=== PATIENT | male | born 1940 | race Caucasian/White ===

== ENCOUNTER 2016-06-18 11:28 | Observation (INO) | payer BC, OTHER ==
[~2016-06-18] VITALS: Ht 170.2 cm; Wt 68.5 kg
[2016-06-18 11:41] VITALS: Ht 170.2 cm; Wt 68.5 kg
[2016-06-18] MEDS ORDERED: SODIUM CHLORIDE 0.9% 1L BAG IV* STA (12:14)
[2016-06-18 12:36] LABS: ADD SCAN DIFF NO
[2016-06-18 12:39] LABS: BASOPHIL # 0.1 10^3/ul (0.0-0.1); BASOPHILS % 0.4 % (0.0-2.0); EOSINOPHILS % 0.2 % (0.0-7.0); HEMATOCRIT 34.8 % (42.0-52.0); HEMOGLOBIN 11.6 g/dl (14.0-18.0); LYMPHOCYTES % 7.3 % (15.0-51.0); MEAN CORPUSCULAR HEMOGLOBIN 28.4 pg (29.0-33.0); MEAN CORPUSCULAR HGB CONC 33.3 g/dl (32.0-37.0); MEAN CORPUSCULAR VOLUME 85.3 fl (82.0-101.0); MONOCYTE # 0.7 10^3/ul (0.3-0.9); MONOCYTES % 4.9 % (0.0-11.0); NEUTROPHIL # 12.1 10^3/ul (1.6-7.5); NEUTROPHILS % 86.7 % (39.0-77.0); PLATELET COUNT 366 10^3/UL (140-415); RED BLOOD COUNT 4.08 10^6/ul (4.70-6.10); RED CELL DISTRIBUTION WIDTH 13.2 % (11.5-14.5)
[2016-06-18 12:51] LABS: ALBUMIN 3.6 g/dl (3.3-4.9); CHLORIDE 97 mmol/L (97-110)
[2016-06-18 12:52] LABS: POTASSIUM 3.6 mmol/L (3.5-5.1); SODIUM 138 mmol/L (135-144)
[2016-06-18 12:54] LABS: ANION GAP 14 (8-16); BILIRUBIN,INDIRECT 0.3 mg/dl (0-1.1); BILIRUBIN,TOTAL 0.3 mg/dl (0.2-1.3); CARBON DIOXIDE 31 mmol/L (21-31)
[2016-06-18 12:55] LABS: ALANINE AMINOTRANSFERASE 34 IU/L (13-69); ALBUMIN/GLOBULIN RATIO 1.05; ALKALINE PHOSPHATASE 101 IU/L (42-121); ASPARTATE AMINO TRANSFERASE 34 IU/L (15-46); BLOOD UREA NITROGEN 17 mg/dl (7-20); CALCIUM 9.2 mg/dl (8.4-10.2); GLUCOSE 102 mg/dl (70-220)
[2016-06-18 12:56] LABS: INR 1.09; PROTIME 14.1 Sec (12.2-14.2); PT RATIO 1.1
[2016-06-18 12:57] LABS: PARTIAL THROMBOPLASTIN TIME 34.4 Sec (25.0-35.0)
[2016-06-18] MEDS ORDERED: HYD25 PO (13:02)
[2016-06-18] MEDS ORDERED: BENA40TA41 PO (13:02)
[2016-06-18] MEDS ORDERED: TAMS0.4C2 PO (13:02)
[2016-06-18] MEDS ORDERED: BRIM10DR12 BOTH EYES (13:03)
[2016-06-18] MEDS ORDERED: AMLO-147 PO (13:03)
[2016-06-18 13:08] LABS: TROPONIN-I < 0.012 ng/ml (0.00-0.12)
[2016-06-18 13:41] LABS: ADD UMIC NO; URINE BILIRUBIN (Dip) NEGATIVE (NEGATIVE); URINE BLOOD (Dip) NEGATIVE (NEGATIVE); URINE COLOR LT. YELLOW (YELLOW); URINE GLUCOSE (Dip) NEGATIVE (NEGATIVE); URINE KETONES (Dip) NEGATIVE (NEGATIVE); URINE LEUKOCYTE ESTERASE (Dip) NEGATIVE (NEGATIVE); URINE NITRITE (Dip) NEGATIVE (NEGATIVE); URINE TOTAL PROTEIN (Dip) NEGATIVE (NEGATIVE); URINE UROBILINOGEN (Dip) 0.2 E.U./dL (0.1-1.0)
[2016-06-18] MEDS ORDERED: ACETAMINOPHEN 325 MG TAB PO ONE (14:00)
[2016-06-18 14:05] VITALS: PULSE 70
--- NOTE | 2016-06-18 14:16 | RADRPT ---
PROCEDURE: XR Chest. CLINICAL INDICATION: Cough. Sepsis. TECHNIQUE: Single frontal view. COMPARISON: None. FINDINGS: There is mild air space disease in the lingula consistent with pneumonia. The lungs are otherwise c lear. The heart size is normal. There is calcification in the aorta consistent with atherosclerosis. There is no pleural effusion. There is no pneumothorax. IMPRESSION: 1. Mild lingular pneumonia. 2. Atherosclerosis. 3. Otherwise normal chest radiograph. RPTAT: QQ .Per Pike MD, MD Date Time Electronically viewed and signed by .Per Pike MD, MD on 06/18/2016 14:16 .R/
[2016-06-18] MEDS ORDERED: CEFTRIAXONE 1 GM/50 ML (PMX) 50 ML IVPB STA (14:21)
[2016-06-18] MEDS ORDERED: AZITHROMYCIN 500MG/NS (PMX) 250 ML IV STA (14:21)
[2016-06-18] MEDS ORDERED: SOD CHLORIDE 0.9% 1,000 ML IV SCH (14:51)
[2016-06-18] MEDS ORDERED: ACETAMINOPHEN 325 MG TAB PO PRN ×2 (15:00→20:30)
[2016-06-18] MEDS ORDERED: ONDANSETRON 4 MG INJ IV PRN ×2 (15:00→20:30)
--- NOTE | 2016-06-18 15:01 | ERA ---
ER Documentation Chief Complaint Date/Time DATE: 06/18/16 TIME: 14:56 Chief Complaint BODY PAIN STARTING IN LEGS [id number]. SEEM PCP, NOT GETTING BETTER HPI This is a 75-year-old male who presents to the emergency room with his daughter for evaluation of fever, body aches, and a dry cough that he has had for the past 3 weeks. This patient states that he is having an achy pain which he localizes to the back worse with coughing. According to the daughter she states that he is seen multiple doctors and has had a recent x-ray all of which showed no signs of infection. The patient was brought into the ER today for further evaluation of these symptoms. ROS All systems reviewed and are negative except as per history of present illness. Medications Home Meds Reported Medications Amlodipine Besylate* (Amlodipine Besylate*) 10 Mg Tablet, 10 MG PO DAILY, #30 TAB 06/18/16 Brimonidine Tartrate* (Brimonidine Tartrate*) 0.15%-10ML Drop Opht, 1 DROP BOTH EYES Q8, #1 EA 06/18/16 Tamsulosin Hcl* (Tamsulosin Hcl*) 0.4 Mg Cap.er.24h, 0.4 MG PO HS, CAP 06/18/16 Hydrochlorothiazide* (Hydrochlorothiazide*) 25 Mg Tab, 25 MG PO DAILY, #30 TAB 06/18/16 Benazepril Hcl* (Benazepril Hcl*) 40 Mg Tablet, 40 MG PO DAILY, #30 TAB 06/18/16 Allergies Allergies: Coded Allergies: No Known Allergy (Unverified , 06/18/16) PMhx/Soc History of Surgery: Yes (cateracts ) Anesthesia Reaction: No Hx Neurological Disorder: No Hx Respiratory Disorders: No Hx Cardiac Disorders: Yes (htn, high cholesterol) Hx Psychiatric Problems: No Hx Miscellaneous Medical Probl: Yes (glauoma ) Hx Alcohol Use: Yes Hx Substance Use: Yes Hx Tobacco Use: Yes Smoking Status: Never smoker Physical Exam Vitals Vital Signs Date Time Temp Pulse Resp B/P Pulse Ox O2 Delivery O2 Flow Rate FiO2 06/18/16 14:05 70 16 123/50 100 Room Air 06/18/16 11:41 102.1 105 19 119/55 97 Physical Exam INITIAL VITAL SIGNS: Reviewed by me GENERAL: The patient is well developed and appropriate for usual state of health in no apparent distress, warm to touch HEENT: Dry mucous membranes pupils equal, round, and reactive to light. EOMI. There is no scleral icterus. NECK: C-spine is soft and supple, there is no meningismus. There is no cervical lymphadenopathy. LUNGS: Clear to auscultation bilaterally. There are no rales, wheezes or rhonchi. HEART: Tachycardic and rhythm, no murmurs, clicks, rubs or gallops. ABDOMEN: Soft, non-tender, non-distended. There are bowel sounds in all four quadrants. No rebound or guarding. EXTREMITIES: There is no peripheral cyanosis or edema. No focal swelling or erythema. NEUROLOGICAL: The patient moves all four extremities with 5/5 strength. Cranial nerves II - XII are intact. Normal gait. Alert and oriented SKIN: There is no apparent rash or petechiae. HEME/LYMPHATIC: There is no evidence of excessive bruising or lymphedema. PSYCHIATRIC: The patient does not appear anxious or depressed. Result Diagram: 06/18/16 1214 06/18/16 1214 Results 24 hrs Laboratory Tests Test 06/18/16 12:14 06/18/16 13:18 Activated Partial Thromboplast Time 34.4Sec Alanine Aminotransferase (ALT/SGPT) 34IU/L Albumin 3.6g/dl Albumin/Globulin Ratio 1.05 Alkaline Phosphatase 101IU/L Anion Gap 14 Aspartate Amino Transf (AST/SGOT) 34IU/L Basophils # 0.110^3/ul Basophils % 0.4% Blood Urea Nitrogen 17mg/dl Calcium Level 9.2mg/dl Carbon Dioxide Level 31mmol/L Chloride Level 97mmol/L Creatinine 0.80mg/dl Direct Bilirubin 0.00mg/dl Eosinophils # 0.010^3/ul Eosinophils % 0.2% Globulin 3.40g/dl Glucose Level 102mg/dl Hematocrit 34.8% Hemoglobin 11.6g/dl INR International Normalized Ratio 1.09 Indirect Bilirubin 0.3mg/dl Lactic Acid Level 1.6mmol/L Lymphocytes # 1.010^3/ul Lymphocytes % 7.3% Mean Corpuscular Hemoglobin 28.4pg Mean Corpuscular Hemoglobin Concent 33.3g/dl Mean Corpuscular Volume 85.3fl Mean Platelet Volume 10.0fl Monocytes # 0.710^3/ul Monocytes % 4.9% Neutrophils # 12.110^3/ul Neutrophils % 86.7% Nucleated Red Blood Cells # 0.010^3/ul Nucleated Red Blood Cells % 0.0/100WBC Platelet Count 15962^3/UL Potassium Level 3.6mmol/L Prothrombin Time 14.1Sec Prothrombin Time Ratio 1.1 Red Blood Count 4.0810^6/ul Red Cell Distribution Width 13.2% Sodium Level 138mmol/L Total Bilirubin 0.3mg/dl Total Protein 7.0g/dl Troponin I < 0.012ng/ml White Blood Count 14.010^3/ul Urine Bilirubin NEGATIVE Urine Clarity CLEAR Urine Color LT. YELLOW Urine Glucose NEGATIVE% Urine Hemoglobin NEGATIVE Urine Ketones NEGATIVE Urine Leukocyte Esterase NEGATIVE Urine Nitrite NEGATIVE Urine Specific [place] 1.020 Urine Total Protein NEGATIVE Urine Urobilinogen 0.2 E.U./dL Urine pH 6.0 Current Medications Medications (Trade) Dose Ordered Sig/Frank Route PRN Reason Start Time Stop Time Status Last Admin Dose Admin Sodium Chloride (NS) 2,120 ml BOLUS OVER 2 HOURS STAT IV* 06/18/16 12:14 06/18/16 12:16 DC 06/18/16 12:40 Acetaminophen 650 mg 650 mg ONCE ONCE PO 06/18/16 14:00 06/18/16 14:01 DC 06/18/16 14:00 Azithromycin 250 ml @ 250 mls/hr ONCE STAT IV 06/18/16 14:21 06/18/16 15:20 Ceftriaxone Sodium 50 ml @ 100 mls/hr ONCE STAT IVPB 06/18/16 14:21 06/18/16 14:50 DC 06/18/16 14:38 Sodium Chloride (NS) 1,000 ml @ 80 mls/hr [id number] IV 06/18/16 14:51 06/19/16 03:20 Ondansetron HCl (Zofran Inj) 4 mg BRIDGE ORDER PRN IV NAUSEA AND/OR VOMITING 06/18/16 15:00 06/19/16 14:59 Acetaminophen (Tylenol Tab) 650 mg ER BRIDGE PRN PO MILD PAIN/FEVER 06/18/16 15:00 06/19/16 14:59 Procedures/MDM EKG: Rate/Rhythm: [Normal Sinus Rhythm] QRS, ST, T-waves: [No changes consistent w/ acute ischemia] Impression: [No evidence of ischemia or arrhythmia] Chest X-ray 1V Interpreted by me: Soft Tissue: Lingular pneumonia Bones: No acute abnormalities Mediastinum/Cardiac Silhouette/Lungs: [No acute abnormalities] This 75-year-old male presents to the emergency room for evaluation of body aches, chills, and a cough. When I initially evaluated this patient he was febrile and tachycardic. A septic workup was started on this patient and he was found to have a lingular pneumonia. The patient also has a white blood cell count of greater than 14,000, and does meet sepsis criteria. Given this patient's age, and symptoms this patient will be admitted to the hospital for further evaluation. The patient was given 30 cc/kg of IV normal saline. Lactic acid is less than 2. He is hemodynamically stable at this time with a mean arterial pressure greater than 65. He was started on community-acquired coverage with Rocephin and azithromycin. This patient will be placed in for admission at this time to the [facility] floor under the care of Dr. sung. Critical Care: Excluding all billable procedures Time: 34 minutes Treatments/Evaluations: Close monitoring and treatment of unstable vital signs, cardiorespiratory, and neurologic status, while maintaining tight balance of fluid, respiratory, and cardiac interventions. Departure Diagnosis: Primary Impression: Sepsis Additional Impressions: Lingular pneumonia Normocytic anemia Condition: Stable ASHLI SNOW DO Jun 18, 2016 15:01
[2016-06-18 18:56] VITALS: TEMP 98.2
[2016-06-18] MEDS ORDERED: TAMSULOSIN (SR) 0.4 MG CAP PO SCH (21:00)
[2016-06-18] MEDS: BRIMONIDINE 0.15% 5 ML OPH BOTH EYES SCH (22:00)
[2016-06-18 22:10] VITALS: BP 114/56; RESP 17
[2016-06-19] MEDS: BRIMONIDINE 0.15% 5 ML OPH BOTH EYES SCH ×2 (05:17→17:31)
[2016-06-19 06:20] LABS: ADD SCAN DIFF NO
[2016-06-19 06:23] LABS: BASOPHIL # 0.1 10^3/ul (0.0-0.1); BASOPHILS % 0.6 % (0.0-2.0); EOSINOPHILS # 0.1 10^3/ul (0.0-0.5); EOSINOPHILS % 0.5 % (0.0-7.0); HEMATOCRIT 30.4 % (42.0-52.0); HEMOGLOBIN 9.9 g/dl (14.0-18.0); LYMPHOCYTES # 1.4 10^3/ul (0.8-2.9); LYMPHOCYTES % 13.5 % (15.0-51.0); MEAN CORPUSCULAR HEMOGLOBIN 27.7 pg (29.0-33.0); MEAN CORPUSCULAR HGB CONC 32.6 g/dl (32.0-37.0); MEAN CORPUSCULAR VOLUME 84.9 fl (82.0-101.0); MEAN PLATELET VOLUME 10.4 fl (7.4-10.4); MONOCYTE # 0.8 10^3/ul (0.3-0.9); MONOCYTES % 7.7 % (0.0-11.0); NEUTROPHIL # 7.9 10^3/ul (1.6-7.5); NEUTROPHILS % 77.1 % (39.0-77.0); PLATELET COUNT 315 10^3/UL (140-415); RED BLOOD COUNT 3.58 10^6/ul (4.70-6.10); RED CELL DISTRIBUTION WIDTH 13.3 % (11.5-14.5); WHITE BLOOD COUNT 10.3 10^3/ul (4.8-10.8)
[2016-06-19] MEDS ORDERED: VANCOMYCIN IV PER PHARMACY XX SCH (06:30)
[2016-06-19] MEDS ORDERED: CEFTRIAXONE 1 GM/50 ML (PMX) 50 ML IVPB SCH (08:00)
[2016-06-19 08:05] VITALS: BP 115/56; RESP 18
[2016-06-19] MEDS ORDERED: AMLODIPINE 10 MG TAB PO SCH (09:00)
[2016-06-19] MEDS ORDERED: BENAZEPRIL 40 MG TAB PO SCH (09:00)
[2016-06-19] MEDS ORDERED: AZITHROMYCIN 500MG/NS (PMX) 250 ML IVPB SCH (09:00)
[2016-06-19] MEDS ORDERED: VANCOMYCIN 1.5 GM in SOD CHLORIDE 0.9% 250 ML IVPB SCH (09:00)
[2016-06-19] MEDS ORDERED: LEVOFLOXACIN 500MG/D5W (PMX) 100 ML IVPB SCH (12:00)
[2016-06-19] MEDS ORDERED: Vancomycin Iv Per Pharmacy XX (14:15)
--- NOTE | 2016-06-19 15:01 | TS ---
DATE OF ADMISSION: 06/18/2016 DATE OF DISCHARGE: 06/19/2016 DIAGNOSES ON TRANSFER: 1. Staphylococcus bacteremia, stable. The patient is on Levaquin and vancomycin. Cultures and se nsitivities are pending at the time of transfer. 2. Lingular infiltrate on x-ray, stable. The patient was initially started on Zithromax and Roceph in, and then continued on with Levaquin. The patient has a mild cough, but is on room air. 3. Hypertension, stable on outpatient medications. 4. Benign prostatic hypertrophy, stable on outpatient medication. 5. Glaucoma, stable on eyedrops. HOSPITAL COURSE: The patient is a very pleasant 75-year-old gentleman with hypertension, BPH, and g laucoma, who was in his usual state of health up until about 3 weeks ago. He started having diffuse muscle aches, particularly in his back, and weakness and diaphoresis. He visited his primary care physician a couple of times, and his workup revealed essentially a URI. He was treated conservative ly. Over the course of the last 3 weeks, his symptoms worsened, and he presented to the emergency d [facility] for further evaluation and treatment. In the emergency department, he was found to have a lingular infiltrate on x-ray and was given Rocep hin and Zithromax. The patient was subsequently continued on Levaquin with the last dose being 08/2016. Of note, the patient had blood cultures drawn in the emergency department, and 2/2 had Stap hylococcus species. The exact organism and sensitivities were all pending at the time of discharge. As the patient had 2/2 positive blood cultures, this was likely considered not to be a contaminant ; however, final results are pending. Of note, the patient has a 2 x 1.5 cm abscess in the mid thoracic spine to the right side. He state d in the past that he had a "pimple" there, and his had popped it in the past and pus was remov ed. As the patient was transferring to [facility], the area was demarcated by humberto martin, and incision and drainage should be considered at [place]. The patient is being treated w ith vancomycin and Levaquin, and he has received 1.5 mg of vancomycin q.24h. as dosed by pharmacy. The patient's vital signs were stable on transfer with temperature of 98.3, blood pressure 115/56, p ulse rate of 65, respiration rate of 18, oxygen saturation is 95% on room air. His white count on transfer is 10.3, hemoglobin of 9.9, hematocrit of 30.4, and platelet count of 31 5,000. His sodium was 138, potassium 3.6, BUN and creatinine are 17 and 0.8. The rest of the studi es are essentially unremarkable. CONDITION ON TRANSFER: Stable. DISPOSITION: Transfer to [facility] for insurance reasons. MEDICATIONS ON TRANSFER: 1. Levaquin 500 mg IV q.24h. 2. Norvasc 10 mg oral once daily, last dose given at 9 a.m. on June 19. 3. Benazepril 40 mg once daily, last dose given on June 19 at 9:00 a.m. 4. Vancomycin 1.5 grams q.24h. intravenously, last dose given at 10:08 a.m. 5. Flomax 0.4 mg at bedtime, last dose given on June 18 at 2100. 6. Alphagan 1 drop to both eyes every 8 hours, last drop given at 5:00 a.m. on 06/19/2016. Dictated By: NICANOR CUBA/RAJNI Conf#: [id number] DID#: [id number]
--- NOTE | 2016-06-19 17:38 | HP ---
DATE OF ADMISSION: 06/18/2016 CHIEF COMPLAINT: "I have body aches and cough for almost 3 weeks." HISTORY OF PRESENT ILLNESS: The patient is a very pleasant Latin gentleman with hypertension and BP H, who was in his usual state of health until about 3 weeks ago. He has been to his primary care ph ysician a couple of times over the last 3 weeks, and his chief complaint of fever, body aches, and d ry cough has persisted. The patient had an outpatient x-ray, and it was basically unremarkable. Fr om speaking to the patient and his daughter, it appears that the patient was deemed to have a viral upper respiratory tract infection, and for this reason, he was managed conservatively. Unfortunatel y, the patient continued to worsen, and his symptoms progressed, so he presented to the emergency de partment for further evaluation and treatment. In the emergency department, the patient had a chest x-ray, which revealed mild lingular pneumonia, atherosclerosis, and an otherwise normal chest x-ray. There was atherosclerosis of the aorta as lin cribed above. He was afebrile, but his white count was approximately 14,000, so he was placed on e medical floor for observation and antibiotics. Of note, the patient received Zithromax and Roceph in in the emergency department. The patient also had blood cultures drawn in the emergency department, which had preliminarily resul ts of gram-positive cocci in pairs, chains, and clusters. This was seen on 2/2 cultures. ALLERGIES: NO KNOWN DRUG ALLERGIES. MEDICATIONS: 1. Norvasc 10 mg once daily. 2. Brimonidine tartrate 1 drop to both eyes every 8 hours. 3. Tamsulosin 0.5 mg once daily. 4. Hydrochlorothiazide 25 mg once daily. 5. Benazepril 40 mg once daily. PAST SURGICAL HISTORY: Significant for cataracts and glaucoma. PAST MEDICAL HISTORY: His medical conditions include hypertension and hyperlipidemia. SOCIAL HISTORY: The patient denies alcohol and tobacco use. He lives in [place] with his . He has several family members who live close by. REVIEW OF SYSTEMS: Essentially negative for nausea, vomiting, and diaphoresis. He did have diffuse muscle aches and back pain. PHYSICAL EXAMINATION: VITAL SIGNS: His temperature in the ER was 102.1, but now currently 98.2, blood pressure of 115/56, pulse rate of 65 to 75, oxygen saturation is 95% on room air. His respiratory rate is 16 to 18. HEENT: Normocephalic, atraumatic. Extraocular movements are intact. Pupils were equal, round, sarah ctive to light and accommodation. His oropharynx was mildly dry. His dentition was fair. No absce sses or open sores are noted in his oropharynx. NECK: Supple. No lymphadenopathy was noted. His thyroid was midline and did not appear to be enla rged. CARDIOVASCULAR: He had a regular rate and rhythm without appreciable murmurs, rubs, or gallops. LUNGS: Clear to auscultation bilaterally throughout all lung jaquez. No rales, rhonchi, or crackle s were noted. ABDOMEN: Soft, nontender, nondistended with normoactive bowel sounds present in all 4 quadrants. EXTREMITIES: He had no clubbing, cyanosis, or edema. He had 2+ dorsalis pedis pulses and 2+ radial pulses bilaterally. BACK: In the mid back around the T10 area, the patient has a 2 x 2 cm elevated mass on his back. I t does dhara. It may be an enlarged pustule. Per the history from the patient's , he has had pustules that were "popped" in his back and pus was . There is no vertebral tenderness noted. LABORATORIES AND TESTS: Initial white count was 14,000, now down to 10.3; hemoglobin 11.6, now down to 9.9. Current hematocrit of 30.4 and platelet count of 315,000 with 77% neutrophils and 13% lymp hocytes. Sodium 138, potassium 3.6, chloride 97, bicarbonate 31, BUN 17, creatinine 0.8, glucose 10 2, calcium 9.2, total bilirubin 0.3, direct bilirubin 0, indirect 0.3, AST and ALT are both 34, river line phosphatase was 101. Troponin less than 0.012, globulin was slightly elevated at 3.4, albumin was 3.6, and total protein was 7. His PT was 14.1, INR 1.09, PTT of 34. His urinalysis was complet marci negative. IMPRESSION: 1. The patient is a pleasant 75-year-old gentleman with benign prostatic hypertrophy and hypertensi on, who presents with a 3-week history of malaise, back pain, and myalgias, as well as cough. He cardona s a mild lingular pneumonia on x-ray. His cough is under control. He did have blood cultures revea l gram-positive cocci in chains, clusters, and pairs. The patient was initially started on azithrom ycin and Rocephin; however, his antibiotic regimen has been modified to vancomycin and Levaquin. He received this intravenously as soon as the blood culture result was noted this morning. For insur ance reasons, the patient is being transferred to [facility] for ongoing care. We will transfer the information from the blood culture results to [place] to continue the patien t's care. In this manner, appropriate antibiotic modification needs to be done. The source of the infection may be of the lingular pneumonia and/or the possible pustule on his back. This was explai moises to the patient and the family at bedside and upon transfer to [place], the patient can have t his evaluated by the medical team at this facility. An I and D may be in order; however, I will def er to the treating team at that facility. 2. Hypertension: Stable. We will continue outpatient medications. 3. Benign prostatic hypertrophy: Stable. We will continue outpatient medications. DISPOSITION: The patient will transfer to [facility] for ongoing care. Dictated By: NICANOR CUBA/RAJNI Conf#: [id number] DID#: [id number]
== END 2016-06-19 18:27 | disposition short-term general hospital (02) ==
LOC: E/R 11:28 → EDBD 11:28 → PP2 14:52
PROVIDERS: ADMIT Internal Medicine; ATTEND Internal Medicine
DX: B95.8 Unspecified staphylococcus as the cause of diseases classified elsewhere (principal); R53.81 Other malaise; M79.1 Myalgia; N40.0 Benign prostatic hyperplasia without lower urinary tract symptoms; I10 Essential (primary) hypertension; R05 Cough; H40.9 Unspecified glaucoma
CPT/HCPCS: 36415; 71010; 80053; 80061; 81003; 82550; 82553; 83605; 84484; 85025; 85610; 85730; 87040; 87086; 87400; 93005; 96365; 96366; 96374; 96375; 99291; G0378; J0456; J0696; J1956; J3370; J7030; J7050; 99217